=== PATIENT | female | born 1985 | race Caucasian/White ===

== ENCOUNTER 2018-11-05 05:10 | Inpatient (IN) | payer MEDICAID ==
[~2018-11-05] VITALS: Ht 162.6 cm; Wt 109.1 kg
[2018-11-05 05:23] VITALS: BP 161/96; PULSE 75; RESP 20
[2018-11-05] MEDS ORDERED: LACTATED RINGER'S 1,000 ML IV SCH (05:27)
[2018-11-05] MEDS ORDERED: LACTATED RINGER'S 1,000 ML IV PRN (05:27)
[2018-11-05 05:29] VITALS: Ht 162.6 cm; Wt 109.1 kg
[2018-11-05] MEDS ORDERED: MISOPROSTOL 200 MCG TAB PR PRN ×2 (05:30→07:00)
[2018-11-05] MEDS ORDERED: METHYLERGONOVINE 0.2 MG INJ IM PRN ×2 (05:30→07:00)
[2018-11-05] MEDS ORDERED: LIDOCAINE 1% (MPF) 30 ML INJ INJ PRN (05:30)
[2018-11-05] MEDS ORDERED: IBUPROFEN 600 MG TAB PO PRN (05:30)
[2018-11-05] MEDS ORDERED: OXYTOCIN 30 UNITS/LR 500 ML IV PRN ×2 (05:30→07:00)
[2018-11-05] MEDS ORDERED: OXYTOCIN 30 UNITS/LR 500 ML IV SCH ×2 (05:30)
[2018-11-05] MEDS ORDERED: BUTORPHANOL 2 MG INJ IV PRN (05:30)
[2018-11-05] MEDS ORDERED: CARBOPROST 250 MCG INJ IM PRN ×2 (05:30→07:00)
[2018-11-05] MEDS ORDERED: PREN1TAB13 PO (05:35)
--- NOTE | 2018-11-05 06:58 | LDN ---
Date/Time of Note Date/Time of Note DATE: 11/05/18 TIME: 06:56 Delivery Summary Pt delivered by a viable baby girl weighing 3445 grams or 7# 10 oz, 19.5" long, and with Apgars of 8/9. Weeks of Gestation 39w 1d Placenta Delivered: Spontaneously Meconium: none Episiotomy: No Perineal laceration: 0 Anesthesia type: None Estimated blood loss: 150 All needle counts correct: Yes Any foreign bodies felt in the: No (vagina) Infant Delivery Information Sex Infant Sex: female Apgars 1 Minute: 8 5 Minute: 9 Suctioning Nose & mouth suctioned at amanda: Yes Delee suction performed: No Umbilical Cord Umbilical cord with: 3 Vessels Cord presentations: no nuchal cord Cord Blood was obtained: Yes Mother & Baby Disposition Disposition Mom & Baby to Maternity; Good: Yes Baby to NICU: No MERCEDEZ ESPINOZA MD Nov 05, 2018 06:58
[2018-11-05] MEDS ORDERED: HYDROCODONE/APAP (5/325) TAB PO PRN (07:00)
--- NOTE | 2018-11-05 07:03 | HP ---
Date/Time of Note Date/Time of Note DATE: 11/05/18 TIME: 06:58 OB - History Hx of Present Free Text/Dictation Pt is a 32 y.o. with an IUP at 39w 1d whowas supposed to come in for induction today but showed up in active labor at 6 cm and progressed to complete in one hour. Estimated Due Date: Nov 11, 2018 : 4 Para: 3 Care: Good Care Ultrasounds: Normal mid trimester US Obstetrical Complications: None Medical Complications: None Other Concerns: PMHX: none. PSHx: none. NKDA Past Family/Social History * Past Medical, Surgical, Family and Obstetric Histories reviewed from chart. Blood Type: O+ Rubella: immune RPR/VDRL: Negative GBS Status: Negative HBsAG: Negative OB Admission Exam Vital Signs Vital Signs Vital Signs Date Temp Pulse Resp B/P (MAP) Pulse Ox O2 O2 Flow FiO2 Time Delivery Rate 11/05/18 98.7 75 20 161/96 Room Air 05:23 (117) Physical Exam HEENT: WNL Heart: Rhythm Normal Lungs: Clear Abdomen: WNL Extremities: Normal Reflexes: Normal Cervical Dilatation: 6cm Effacement: Other (90%) Membranes: Intact Amniotic Fluid: Clear Heart Rate: 140's Accelerations: Accelerations Present Decelerations: No Decelerations Varibility: Moderate Contractions on Admission: < 5 Minutes Apart Intensity: Firm Last 72 hours Lab Results CBC & BMP 11/05/18 05:20 OB Assessment/Plan Reason for admission: active labor Plan: Expectant Management MERCEDEZ ESPINOZA MD Nov 05, 2018 07:03
[2018-11-05] MEDS: OXYTOCIN 30 UNITS/LR 500 ML IV SCH ×7 (07:35→23:30)
[2018-11-05 08:30] VITALS: BP 106/62; PULSE 70; RESP 18
[2018-11-05] MEDS: LANOLIN HPA 1 PKT TOP PRN (11:36)
[2018-11-05] MEDS: IBUPROFEN 600 MG TAB PO SCH ×3 (11:36→23:48)
[2018-11-05 11:52] VITALS: BP 122/57; PULSE 91; RESP 16
[2018-11-05] MEDS: LACTATED RINGER'S 1,000 ML IV* SCH ×2 (14:53→22:53)
[2018-11-05 16:00] VITALS: BP 108/72; PULSE 83; RESP 14
[2018-11-05 19:45] VITALS: BP 115/72; PULSE 80; RESP 18
[2018-11-06] MEDS: OXYTOCIN 30 UNITS/LR 500 ML IV SCH ×2 (03:30→07:30)
[2018-11-06 04:05] VITALS: BP 101/51; PULSE 70; RESP 18
[2018-11-06] MEDS: IBUPROFEN 600 MG TAB PO SCH ×4 (05:49→23:53)
[2018-11-06] MEDS: LACTATED RINGER'S 1,000 ML IV* SCH (06:53)
[2018-11-06 07:50] VITALS: BP 93/55; PULSE 72; RESP 16
[2018-11-06] MEDS ORDERED: INFLUENZA VIRUS VACCINE 0.5 ML (DISPENSING) IM* ONE (09:00)
--- NOTE | 2018-11-06 11:56 | DS ---
Date/Time of Note Date/Time of Note DATE: 11/06/18 TIME: 11:56 Discharge Summary Admission/Discharge Info Admit Date/Time Nov 05, 2018 at 05:10 Discharge Date/Time Discharge Diagnosis term Patient Condition: Stable Hospital Course unremarkable Home Meds Reported Medications Pnv95/Ferrous Fumarate/FA ( Vitamins Tablet) 1 Each Tablet, 1 EACH PO, TAB 11/05/18 Primary Care Provider Care Physician No Primary Pending Labs Laboratory Tests Test 11/06/18 06:22 11/06/18 08:39 Lab Scanned Report [facility] [id number] White Blood Count 8.1 10^3/ul (4.8-10.8) Red Blood Count 3.54 10^6/ul (4.20-5.40) Hemoglobin 10.9 g/dl (12.0-16.0) Hematocrit 31.7 % (37.0-47.0) Mean Corpuscular Volume 89.5 fl (82.0-101.0) Mean Corpuscular Hemoglobin 30.8 pg (29.0-33.0) Mean Corpuscular 34.4 g/dl (32.0-37.0) Hemoglobin Concent Red Cell Distribution Width 13.3 % (11.5-14.5) Platelet Count 206 10^3/UL (140-415) Mean Platelet Volume 10.6 fl (7.4-10.4) Immature Granulocytes % 0.400 % (0.001-0.429) Neutrophils % 65.1 % (39.0-77.0) Lymphocytes % 27.7 % (15.0-51.0) Monocytes % 5.0 % (0.0-11.0) Eosinophils % 1.2 % (0.0-7.0) Basophils % 0.6 % (0.0-2.0) Nucleated Red Blood Cells % 0.0 /100WBC (0.0-0.0) Immature Granulocytes # 0.030 10^3/ul (0.0-0.031) Neutrophils # 5.3 10^3/ul (1.6-7.5) Lymphocytes # 2.3 10^3/ul (0.8-2.9) Monocytes # 0.4 10^3/ul (0.3-0.9) Eosinophils # 0.1 10^3/ul (0.0-0.5) Basophils # 0.1 10^3/ul (0.0-0.1) Nucleated Red Blood Cells # 0.0 10^3/ul (0.0-0.0) DA CONNOR MD Nov 06, 2018 11:56
[2018-11-06 15:40] VITALS: BP_SYST 102; BP_SYST 105; BP_DIAS 70; BP_DIAS 79; PULSE 84; RESP 16; RESP 18
[2018-11-06 19:15] VITALS: BP 117/63; PULSE 80; RESP 18
[2018-11-07 03:56] VITALS: BP 112/69; PULSE 80; RESP 18
[2018-11-07] MEDS: IBUPROFEN 600 MG TAB PO SCH ×2 (05:42→12:03)
[2018-11-07 07:50] VITALS: BP 112/72; PULSE 80; RESP 16
--- NOTE | 2018-11-07 08:43 | QN ---
Documentation Comment doing well vss abdomen soft d/c home today DA CONNOR MD Nov 07, 2018 08:42
[2018-11-07] MEDS: LANOLIN HPA 1 PKT TOP PRN (08:58)
[2018-11-07] MEDS ORDERED: DIPHTH/TET/ACEL PERTUSS (ADULT) 0.5 ML VIAL IM* ONE (09:00)
== END 2018-11-07 13:35 | disposition home or self-care (01) | DRG 807 ==
LOC: L-D 05:10 → PP1 08:33
PROVIDERS: ADMIT Obstetrics & Gynecology; ATTEND Obstetrics & Gynecology
PROC: 10E0XZZ Delivery of Products of Conception, External Approach (ICD-10-PCS; principal; 2018-11-05 06:00)
DX: O80 Encounter for full-term uncomplicated delivery (principal); Z37.0 Single live birth; Z3A.39 39 weeks gestation of pregnancy
CPT/HCPCS: 85025; 85610; 85730; 86592; 86850; 86900; 86901; 87340; 90686; 90715; 99464; J2590; J7120